=== PATIENT | male | born 1935 | race Caucasian/White ===

== ENCOUNTER 2016-12-02 15:00 | Emergency (ER) | payer MEDICARE, OTHER ==
[~2016-12-02] VITALS: Ht 182.9 cm; Wt 98.9 kg
--- NOTE | 2016-12-02 15:42 | NUR ---
PATIENT'S TEMPERATURE RECHECKED BY Karla GALLEGOS RN - TEMP = 102.3 TEMPORAL WHICH WAS REPORTED TO DR. CHAUDHRY - ORDER RECEIVED.
[2016-12-02] MEDS ORDERED: ACETAMINOPHEN 500 MG TAB (TYLENOL) PO ONE (15:45)
[2016-12-02 15:51] LABS: BASOPHILS % (AUTO) 0 % (0-2); EOSINOPHILS % (AUTO) 0 % (0-4); LYMPHOCYTES # (AUTO) 1.2 X10^3; MEAN CORPUSCULAR HGB CONC 33.3 g/dL (31.0-37.0); MEAN CORPUSCULAR VOLUME 95 FL (80-100); MEAN PLATELET VOLUME 10.3 FL (6.0-9.5); MONOCYTES # (AUTO) 0.8 X10^3; MONOCYTES % (AUTO) 14 % (3-11); NEUTROPHILS # (AUTO) 3.3 X10^3; NEUTROPHILS % (AUTO) 63 % (51-67); PLATELET COUNT 157 10^3uL (150-450); WHITE BLOOD COUNT 5.28 10^3uL (4.0-11.0)
[2016-12-02 15:59] LABS: MEAN CORPUSCULAR HEMOGLOBIN 31.6 PG (26.0-34.0)
[2016-12-02 16:09] LABS: ANION GAP 12.9 MEQ/L (3-15)
[2016-12-02] MEDS ORDERED: ED- AMOXICILLIN/CLAVULONATE 875MG-125MG (AUGMENTIN) 3 TABLETS/BTL PO ONE (17:05)
[2016-12-02 17:30] VITALS: BP 148/76
== END 2016-12-02 17:25 | disposition home or self-care (01) ==
LOC: EDUNIT# 15:00 → ED 15:03
DX: J06.9 Acute upper respiratory infection, unspecified (principal)
CPT/HCPCS: 36415; 71020; 80048; 85025; 99282; A9270; 99283

== ENCOUNTER → 2017-02-21 | Outpatient (CLI) | payer MEDICARE, OTHER ==
[~2017-02-21] MED LIST: AMOX-355 PO; ASP81CT PO; LEVO112T4 PO; SIMV40TA2 PO
[2017-02-21 08:41] LABS: BASOPHILS % (AUTO) 0 % (0-2); EOSINOPHILS # (AUTO) 0.1 10^3uL; EOSINOPHILS % (AUTO) 2 % (0-4); MEAN CORPUSCULAR HGB CONC 33.6 g/dL (31.0-37.0); MEAN CORPUSCULAR VOLUME 93 FL (80-100); MEAN PLATELET VOLUME 10.1 FL (6.0-9.5); MONOCYTES # (AUTO) 0.6 X10^3; MONOCYTES % (AUTO) 12 % (3-11); NEUTROPHILS # (AUTO) 2.3 X10^3; NEUTROPHILS % (AUTO) 46 % (51-67); PLATELET COUNT 210 10^3uL (150-450); WHITE BLOOD COUNT 5.09 10^3uL (4.0-11.0)
[2017-02-21 08:59] LABS: MEAN CORPUSCULAR HEMOGLOBIN 31.4 PG (26.0-34.0)
[2017-02-21 09:26] LABS: ALKALINE PHOSPHATASE 51 U/L (38-126); ANION GAP 14.9 MEQ/L (3-15); BUN/CREATININE RATIO 25 (10-20); CALCULATED IONIZED CALCIUM 4.2 mg/dL (3.8-4.6); CREATINE KINASE 150 U/L (55-170); TOTAL PROTEIN 6.5 g/dL (6.4-8.5)
--- NOTE | 2017-02-21 09:43 | Diagnostic Imaging Report ---
KNEE, 3 VIEWS, BILATERAL COMPARISON: None available. INDICATION: Bilateral knee pain TECHNIQUE: Non-weight bearing AP, oblique, and lateral views of the bilateral knees. FINDINGS: Nonuniform joint space narrowing of the bilateral medial compartments is degenerative in nature. This is greater on the right and is mild to moderate in nature. The remainder of the joint spaces are well preserved. Tiny marginal osteophytes are present in the right patellofemoral compartment. No knee joint effusion on either side. No fracture. IMPRESSION: 1. 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 Dictated by: Dictated on workstation # [id number]
[2017-02-21 09:45] LABS: BILIRUBIN,URINE Negative (Negative); CLARITY,URINE Clear; COLOR,URINE Yellow; GLUCOSE, URINE (UA) Negative (Negative); LEUKOCYTE ESTERASE ,URINE Negative (Negative); UROBILINOGEN,URINE 0.2 mg/dL (0.2-1.0)
--- NOTE | 2017-02-21 09:52 | Diagnostic Imaging Report ---
INDICATION: Left hip pain. COMPARISON: Right hip radiographs performed concurrently. TECHNIQUE: AP and frog-leg lateral views of the left hip. FINDINGS: The femoral head remains spherical without evidence of osteonecrosis. No evidence of fracture. Normal femoral head/neck offset. No acetabular retroversion. There is mild degenerative joint space narrowing in the left hip. IMPRESSION: Mild osteoarthritis of the left hip. Dictated by: Dictated on workstation # [id number]
--- NOTE | 2017-02-21 09:53 | Diagnostic Imaging Report ---
INDICATION: Right hip pain. COMPARISON: Left hip radiographs performed concurrently. TECHNIQUE: AP and frog-leg lateral views of the right hip. FINDINGS: There is a well-corticated ossific fragment located along the lateral margin of the superior acetabulum. This either relates to calcification of the acetabular labrum or an os acetabuli (congenital ossicle). There are mild to moderate degenerative changes of the right hip which include superior joint space narrowing and a ring of osteophytes at the femoral head/neck junction. No acetabular retroversion. No fracture or evidence of osteonecrosis. IMPRESSION: 1. Mild to moderate osteoarthritis of the right hip. 2. 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 Dictated by: Dictated on workstation # [id number]
[2017-02-21 10:08] LABS: ERYTHROCYTE SEDIMENTATION RT* 7 mm/hr (0-19)
[2017-02-22 02:36] LABS: ANTI NUCLEAR ANTIBODY SCREEN Negative (Negative)
== END ==
LOC: LAB 07:36
PROVIDERS: ATTEND Family Medicine
DX: M25.562 Pain in left knee (principal); M25.561 Pain in right knee; M25.551 Pain in right hip; M25.552 Pain in left hip; M62.89 Other specified disorders of muscle; E03.8 Other specified hypothyroidism; M16.0 Bilateral primary osteoarthritis of hip; M17.0 Bilateral primary osteoarthritis of knee
CPT/HCPCS: 36415; 73502; 80053; 81003; 82550; 84439; 84443; 84550; 85025; 85652; 86038; 86140; 86431

== ENCOUNTER → 2017-03-01 | Outpatient (CLI) | payer MEDICARE, OTHER ==
--- NOTE | 2017-03-01 11:21 | Diagnostic Imaging Report ---
PROCEDURE: MRI lumbar spine. TECHNIQUE: Multiplanar, multisequence MRI of the lumbar spine was performed without contrast. INDICATION: Lumbosacral radiculopathy. COMPARISON: None. FINDINGS: There are 5 lumbar type vertebral bodies presumed for the purposes of this report. Normal alignment. Bone marrow signal is unremarkable. Vertebral body heights are maintained. No abnormal signal in the conus which terminates at L2. Normal morphology of the cauda equina. The visualized paravertebral soft tissues are unremarkable. L1-L2: Small annular disc bulge results in iwye-[id number]-deylvadp spinal canal narrowing. Disc space height loss and facet arthropathy also contribute to mild bilateral neural foraminal narrowing. L2-L3: No substantial spinal canal or lateral recess narrowing. No neural foraminal narrowing. L3-L4: No substantial spinal canal, lateral recess or neural foraminal narrowing. L4-L5: Annular disc bulge, ligamentous hypertrophy and facet arthropathy all contribute to advanced spinal canal narrowing with complete loss of CSF signal about the cauda equina nerve roots at this level. These findings also contribute to advanced bilateral neural foraminal narrowing. L5-S1: No substantial spinal canal or lateral recess narrowing. Disc space height loss and facet arthropathy contribute to moderate right and mild left neural foraminal narrowing. IMPRESSION: 1. 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 There is [id number]-[id number]-gyoiqisa spinal canal narrowing at L1-L2. 2. Advanced bilateral neural foraminal narrowing at L4-L5. Less substantial neural foraminal narrowing detailed above. Dictated by: Dictated on workstation # [id number]
== END ==
LOC: RAD 09:52
PROVIDERS: ATTEND Family Medicine
DX: M54.17 Radiculopathy, lumbosacral region (principal); M48.06 Spinal stenosis, lumbar region
CPT/HCPCS: 72148